=== PATIENT | female | born 1965 | race Caucasian/White ===

== ENCOUNTER 2016-12-29 18:23 | Emergency (ER) | payer OTHER ==
[~2016-12-29] VITALS: Ht 152.4 cm; Wt 68.0 kg
[~2016-12-29 18:23] MED LIST: TRAM50TA94 PO
[2016-12-29 18:28] VITALS: BP 156/107
--- NOTE | 2016-12-29 18:33 | NUR ---
Patient to bed 05.
--- NOTE | 2016-12-29 18:36 | NUR ---
Dr. Davies evaluating patient at bedside.
--- NOTE | 2016-12-29 18:40 | NUR ---
PT. PRESENTS TO ED WITH C/O BAD HEADACHE SINCE EARLIER TODAY, PT. STATES ITS ALL OVER AND HAS GOTTEN CONTINUALLY WORSE, NO VISIBLE SIGNS OF DISTRESS NOTED, BREATHING EVEN AND UNLABORED, AAOX4, AMBULATORY, GAIT STEADY
[2016-12-29] MEDS ORDERED: diphenhydrAMINE 50 MG CAP PO ONE (18:45)
[2016-12-29] MEDS ORDERED: DEXAMETHASONE 4 MG TAB PO ONE (18:45)
[2016-12-29] MEDS ORDERED: METOCLOPRAMIDE 10 MG TAB PO ONE (18:45)
--- NOTE | 2016-12-29 19:23 | NUR ---
Dr. Steele evaluating patient at bedside.
[2016-12-29] MEDS ORDERED: MORPHINE SULFATE 2 MG/ML SYR IM ONE (19:40)
[2016-12-29 20:12] VITALS: BP 141/89
--- NOTE | 2016-12-29 20:12 | NUR ---
Patient discharged with v/s stable. Written and verbal after care instructions given and explained. Patient alert, oriented and verbalized understanding of instructions. Ambulatory with steady gait. All questions addressed prior to discharge. ID band removed. Patient advised to follow up with PMD. Rx of TYLENOL #3 TAB given. Patient educated on indication of medication including possible reaction and side effects. Opportunity to ask questions provided and answered.
== END 2016-12-29 20:12 | disposition home or self-care (01) ==
LOC: MED 18:25
DX: R51 Headache (principal); R03.0 Elevated blood-pressure reading, without diagnosis of hypertension; F17.210 Nicotine dependence, cigarettes, uncomplicated; M06.9 Rheumatoid arthritis, unspecified
CPT/HCPCS: 70450; 81002; 81025; 96372; 99284; J2270; J8597; Q0163

== ENCOUNTER 2019-10-28 10:24 | Emergency (ER) | payer OTHER ==
[~2019-10-28] VITALS: Ht 152.4 cm; Wt 77.1 kg
[~2019-10-28 10:24] MED LIST changes: +TRAM50TA1 PO; -TRAM50TA94 PO
[2019-10-28 10:38] VITALS: BP 156/101
--- NOTE | 2019-10-28 10:40 | NUR ---
PT W/C ASSISTED TO BED 1.
--- NOTE | 2019-10-28 11:20 | NUR ---
PATIENT PRESENTS TO ED WITH R HEEL PAIN X 1 DAY. PAIN DESCRIBED SHARP, 10/10. PT STATES THAT SHE HAS BEEN EXPERIENCING PROGRESSIVELY WORSENIGN PAIN FOR 2 MOS NOW. DENIES ANY INJURY/TRAUMA. R HEEL IS SLIGHTLY SWOLLEN, NO REDNESS NOTED; ABLE TO MOVE R HEEL WITH LIMITATION. VSS; PATIENT POSITIONED FOR COMFORT; HOB ELEVATED; BEDRAILS UP X2; BED DOWN. ER MD MADE AWARE OF PT STATUS. PMH: FIBROMYALGIA, RA, GASTRITIS NKA
[2019-10-28 12:47] VITALS: BP 156/101
--- NOTE | 2019-10-28 12:47 | NUR ---
Patient discharged with v/s stable. Written and verbal after care instructions given and explained. Patient alert, oriented and verbalized understanding of instructions. Ambulatory with crutches. All questions addressed prior to discharge. ID band removed. Patient advised to follow up with PMD. Rx of NORCO given. Patient educated on indication of medication including possible reaction and side effects. Opportunity to ask questions provided and answered.
== END 2019-10-28 12:47 | disposition home or self-care (01) ==
LOC: MED 10:24
DX: M25.571 Pain in right ankle and joints of right foot (principal); Z79.899 Other long term (current) drug therapy
CPT/HCPCS: 73630; 99283; Q0092